=== PATIENT | female | born 1965 | race Two or more races ===

== ENCOUNTER → 2022-10-03 | Outpatient (CLI) | payer BC, SELFPAY ==
--- NOTE | 2022-10-03 | IMM_PTH ---
PATIENT: MARLENE GARLAND LOC: [facility] U#:[id number] AGE/SX: 56/F ROOM: RE10/03/[address]: Dr. Mo Flowers MD : 1965 BED: DIS: 10/03/2022 SPEC #: [id number] RECD: 10/07/22 12:56 STATUS: GLEN REQ #: [id number] LISA: 10/03/22 00:[address]: Mo Flowers DEPT: IMMUNOHISTOCHEMISTRY RECD BY: Mahogany Chao Tissues: A - Left breast, NOS B - Axillary lymph node, NOS Procedures: CALPONIN-1 (add) CK5-6 (add) CK8 (add) CARRANZA-2 (add) E-CAD (add) HER2 MEENA (add) KI-67 (add) MAMM (add) P53 (add) AR (add) GATA3 (add) P40 (add) ER (initial) PHYSICIAN & INSTITUTION [place] [id number] SPECIMEN INFORMATION: Tissue Source: A ? Left breast, B ? Left axillary lymph nodes Clinical Info: Abnormal mammogram Specimen Number: [id number] A & B CPT code: 13278 x2, 48236 x11, 95789 x5 METHODOLOGY: Deparaffinized sections of prefer/formalin-fixed tissue or PAP/DQ stained slides are incubated with monoclonal/polyclonal antibodies/oligonucleotide probes. Localization is made via biotin free immunoperoxidase method. Appropriate controls are performed and reacted as expected. Results on target cell population are indicated in the following table: RESULTS: ANTIBODY / CLONE RESULT Block A P53 (DO-7) positive, 2% Ki-67 (30-9) positive, 80% CK8 (88blfuS91) positive CK5-6 (D5 & 1684) negative Calponin-1 (TK508F) negative P40 (BC28) negative E-Cad (ECH-6) positive CARRANZA-2 (SP21) positive MORPHOMETRIC ANALYSIS ER (clone 6F11) >95%, strong intensity AR (clone 16/1E2) 0% Her-2Neu (clone CB11) 3+ Block B GATA3 (L50-823) positive Mammaglobin (31A5) negative E-Cad (ECH-6) positive CK8 (40jzpkH63) positive P53 (DO-7) positive, 2% ER (6F11) positive, >95% AR (1E2) negative The prognostic test for HER2 is performed on formalin-fixed paraffin embedded tissue. A 3+ (positive) staining pattern is defined as intense, homogeneous, complete, circumferential membranous staining in >10% of contiguous tumor cells. A similar weak (2+) staining pattern is interpreted as equivocal. JUANITA follow-up testing is recommended for all equivocal cases. Positivity/negativity for ER/AR is reported if > or < 1% of the tumor cells are immuno- reactive, respectively. The ASCO/CAP criteria is used for scoring. Reference: Journal of Clinical Oncology, 2013; 31:4526-3970 & 2010; 16:5699-5502. Duration of fixation: 75 Hrs; Sample Adequate: Yes. These assays have not been validated on decalcified tissues. Results should be interpreted with caution given the likelihood of false negativity on decalcified specimens. These tests were developed and their performance characteristics determined by [facility]. They may not have been cleared or approved by the U.S. Food and Drug Administration. The FDA has determined that such clearance or approval is not necessary. The above immunohistochemical/dualISH markers are ordered and reviewed by the Pathologist. INTERPRETATION: A. 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 Positive for estrogen receptors (favorable prognostic indicator). Negative for progesterone receptors (unfavorable prognostic indicator). Positive for overexpression of [id number]. B. Left axillary lymph nodes, biopsy: Metastatic ductal carcinoma of breast origin. AM:shivani 10/08/2022 AM:shivani 10/17/2022 This case was discussed with Dr. March on 10/17/2022.
--- NOTE | 2022-10-03 | IMM_PTH ---
PATIENT: MARLENE GARLAND LOC: [facility] U#:[id number] AGE/SX: 56/F ROOM: RE10/03/[address]: Dr. Mo Flowers MD : 1965 BED: DIS: 10/03/2022 SPEC #: [id number] RECD: 10/07/22 12:56 STATUS: GLEN REQ #: [id number] LISA: 10/03/22 00:[address]: Mo Flowers DEPT: IMMUNOHISTOCHEMISTRY RECD BY: Mahogany Chao Tissues: A - Left breast, NOS B - Axillary lymph node, NOS Procedures: CALPONIN-1 (add) CK5-6 (add) CK8 (add) CARRANZA-2 (add) E-CAD (add) HER2 MEENA (add) KI-67 (add) MAMM (add) P53 (add) HI (add) GATA3 (add) P40 (add) ER (initial) PHYSICIAN & INSTITUTION [place] [phone] SPECIMEN INFORMATION: Tissue Source: A ? Left breast, B ? Left axillary lymph nodes Clinical Info: Abnormal mammogram Specimen Number: [id number] A & B CPT code: 31991 x2, 86582 x11, 02954 x5 METHODOLOGY: Deparaffinized sections of prefer/formalin-fixed tissue or PAP/DQ stained slides are incubated with monoclonal/polyclonal antibodies/oligonucleotide probes. Localization is made via biotin free immunoperoxidase method. Appropriate controls are performed and reacted as expected. Results on target cell population are indicated in the following table: RESULTS: ANTIBODY / CLONE RESULT Block A P53 (DO-7) positive, 2% Ki-67 (30-9) positive, 80% CK8 (64lgkzR85) positive CK5-6 (D5 & 1684) negative Calponin-1 (SD983A) negative P40 (BC28) negative E-Cad (ECH-6) positive CARRANZA-2 (SP21) positive MORPHOMETRIC ANALYSIS ER (clone 6F11) >95%, strong intensity HI (clone 16/1E2) 0% Her-2Neu (clone CB11) 3+ Block B GATA3 (L50-823) positive Mammaglobin (31A5) negative E-Cad (ECH-6) positive CK8 (58aovwQ95) positive P53 (DO-7) positive, 2% ER (6F11) positive, >95% HI (1E2) negative The prognostic test for HER2 is performed on formalin-fixed paraffin embedded tissue. A 3+ (positive) staining pattern is defined as intense, homogeneous, complete, circumferential membranous staining in >10% of contiguous tumor cells. A similar weak (2+) staining pattern is interpreted as equivocal. JUANITA follow-up testing is recommended for all equivocal cases. Positivity/negativity for ER/HI is reported if > or < 1% of the tumor cells are immuno- reactive, respectively. The ASCO/CAP criteria is used for scoring. Reference: Journal of Clinical Oncology, 2013; 31:6483-4638 & 2010; 16:7688-8688. Duration of fixation: 75 Hrs; Sample Adequate: Yes. These assays have not been validated on decalcified tissues. Results should be interpreted with caution given the likelihood of false negativity on decalcified specimens. These tests were developed and their performance characteristics determined by [facility]. They may not have been cleared or approved by the U.S. Food and Drug Administration. The FDA has determined that such clearance or approval is not necessary. The above immunohistochemical/dualISH markers are ordered and reviewed by the Pathologist. INTERPRETATION: A. 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 Negative for estrogen receptors (unfavorable prognostic indicator). Negative for progesterone receptors (unfavorable prognostic indicator). Positive for overexpression of [id number]. B. Left axillary lymph nodes, biopsy: Metastatic ductal carcinoma of breast origin. AM:shivani 10/08/2022
--- NOTE | 2022-10-03 | BRBX_PTH ---
PATIENT: MARLENE GARLAND LOC: [facility] U#:[id number] AGE/SX: 56/F ROOM: RE10/03/[address]: Dr. Mo Flowers MD : 1965 BED: DIS: 10/03/2022 SPEC #: [id number] RECD: 10/03/22 16:56 STATUS: GLEN VALLES #: [id number] LISA: 10/03/22 00:[address]: Mo Flowers DEPT: SURGICAL PATHOLOGY RECD BY: Jaren Painting Tissues: A - Left breast, NOS B - LYMPH NODE BIOPSY Procedures: Surgery Specimen Level IV HEADER OPERATION: Not noted PRE-OP DIAGNOSIS: Abnormal mammogram TISSUE SUBMITTED: A ? Left breast core biopsy, B ? Left axillary lymph nodes MICROSCOPIC DIAGNOSIS A. Left breast, core biopsy: Invasive ductal carcinoma with the following characteristics: Nuclear grade ? 2-3 Maximal length ? 11.5 millimeters. See comment. B. Left axillary sentinel lymph node, core biopsy: Metastatic carcinoma consistent with metastatic ductal carcinoma of breast origin. See comment. AM:shivani 10/07/2022 COMMENT A & B. Immunohistochemistry ([id number]) supports the above diagnosis. MICROSCOPIC DESCRIPTION Slides are reviewed. GROSS DESCRIPTION A - Received in fixative is one container labeled with the patient's name and designated left breast core biopsy. The specimen consists of one elongated piece of bravo soft tissue measuring 1.8 cm in length and 0.1 cm in diameter. The specimen is totally submitted in one cassette. B - Received in fixative is one container labeled with the patient's name and designated axillary lymph node left. The specimen consists of one elongated fragment of bravo soft tissue measuring 1.5 cm in length and 0.1 cm diameter. The specimen is totally submitted in one cassette. / SJ:shivani 10/04/2022 TC:0 CPT: 34104 x2 ADDENDUM ADDENDUM ADDENDUM ADDENDUM ADDENDUM ADDENDUM ADDENDUM ADDENDUM ADDENDUM ADDENDUM ADDENDUM ADDENDUM ADDENDUM ADDENDUM 05/19/2023 10:00 ADDENDUM 05/19/2023 10:00 ADDENDUM 05/19/2023 10:00 ADDENDUM 05/19/2023 10:00 ADDENDUM 05/19/2023 10:00 This addendum is added to incorporate an outside pathology consultation report. The case was examined at [facility] (#[id number]) and the following diagnosis was rendered. A. Left breast, core biopsy: Invasive ductal carcinoma, provisional [place] grade 2-3 (of 3), measuring at least 11 mm in greatest length. B. Left axillary lymph node, core biopsy: Invasive ductal carcinoma, provisional [place] grade 2-3 (of 3), measuring at least 11 mm in greatest length. Please see complete above mentioned consultation report in EMR
== END | disposition home or self-care (01) ==
PROVIDERS: Referring Provider Surgery; Visit Provider Surgery
DX: R92.8 Other abnormal and inconclusive findings on diagnostic imaging of breast (principal); R59.9 Enlarged lymph nodes, unspecified
CPT/HCPCS: 88305; 88341; 88342